=== PATIENT | female | born 1990 | race Caucasian/White ===

== ENCOUNTER 2021-03-06 20:10 | Outpatient (CLI) | payer OTHER ==
[~2021-03-06 20:10] MED LIST: BENTYL 20MG TAB20 MG PO; COLACE 100MG C100 MG PO; ZOFRAN4 MG PO
== END 2021-03-06 21:48 | disposition home or self-care (01) ==
LOC: GENOP 20:10
DX: O26.893 Other specified pregnancy related conditions, third trimester (principal)
CPT/HCPCS: 59025; 81001; G0463

== ENCOUNTER 2021-03-21 05:15 | Inpatient (IN) | payer OTHER ==
[~2021-03-21] VITALS: Ht 160 cm; Wt 93.4 kg
[2021-03-21] MEDS ORDERED: LEVOTHYROXINE137 MCG PO (06:20)
[2021-03-21] MEDS ORDERED: AMITIZA24 MCG PO (06:21)
[2021-03-21] MEDS ORDERED: FAMOTIDINE20 MG PO (06:21)
[2021-03-21] MEDS ORDERED: CLARITIN10 MG PO (06:22)
[2021-03-21] MEDS ORDERED: PRENATABS FA T1 EACH PO (06:22)
[2021-03-21 06:28] LABS: HEMOGLOBIN 12.3 gm/dl (12.3-15.3); RED BLOOD COUNT 3.67 M/UL (4.00-5.10); WHITE BLOOD COUNT 12.3 K/UL (4.5-11.0)
[2021-03-22] MEDS ORDERED: HYDROCODONE-AC1 EAC1 PO (11:38)
[2021-03-22] MEDS ORDERED: DOCUSATE SODIU100 MG PO (11:38)
[2021-03-22] MEDS ORDERED: IBUPROFEN800 MG PO (11:38)
== END 2021-03-22 17:27 | disposition home or self-care (01) | DRG 788 ==
LOC: OB 05:15
PROVIDERS: ADMIT Obstetrics & Gynecology
PROC: 4A1HXCZ Monitoring of Products of Conception, Cardiac Rate, External Approach (ICD-10-PCS; 2021-03-21)
PROC: 10D00Z1 Extraction of Products of Conception, Low, Open Approach (ICD-10-PCS; principal; 2021-03-21 07:30)
DX: O34.211 Maternal care for low transverse scar from previous cesarean delivery (principal); Z3A.39 39 weeks gestation of pregnancy; Z37.0 Single live birth; O99.284 Endocrine, nutritional and metabolic diseases complicating childbirth; E03.9 Hypothyroidism, unspecified; Z88.1 Allergy status to other antibiotic agents; Z88.0 Allergy status to penicillin; Z20.822 Contact with and (suspected) exposure to COVID-19; O99.62 Diseases of the digestive system complicating childbirth; K21.9 Gastro-esophageal reflux disease without esophagitis
CPT/HCPCS: 36415; 81001; 82800; 85014; 85018; 85025; 90715; C9113; J1580; J1885; J2274; J2405; J2590; J3010; J7120; U0003